=== PATIENT | female | born 1965 | race Caucasian/White ===

== ENCOUNTER 2016-08-29 16:08 | Emergency (ER) | payer MEDICAID ==
[~2016-08-29] VITALS: Ht 165.1 cm; Wt 99.8 kg
[2016-08-29 17:23] LABS: Basophils # (auto) 0 uL; Basophils % (auto) 0.4 % (0.0-2.0); Eosinophils # (auto) 0.1 uL; Eosinophils % (auto) 2.2 % (0.0-7.0); Hematocrit 48.2 % (36.0-46.0); Hemoglobin 15.4 g/dL (12.2-16.2); Lymphocytes # (auto) 0.5 uL; Lymphocytes % (auto) 15.2 % (10.0-50.0); Mean Corpuscular Hemoglobin 28.9 pg (28.0-32.0); Mean Corpuscular Volume 90.1 fL (80.0-100.0); Mean Platelet Volume 7.4 fL (7.4-10.4); Monocytes # (auto) 0.5 uL; Monocytes % (auto) 13.3 % (0.0-12.0); Neutrophils # (auto) 2.4 uL; Neutrophils % (auto) 68.9 % (37.0-80.0); Platelet Count (auto) 236 10^3/uL (140-450); Red Cell Distribution Width 13.2 % (11.6-16.0); White Blood Cell 3.5 10^3/uL (4.4-10.8)
[2016-08-29 17:36] LABS: Albumin 3.9 g/dL (3.4-5.0); BUN/Creatinine Ratio 12.9; Calcium 8.7 mg/dL (8.5-10.1); Potassium 3.5 mmol/L (3.5-5.1)
[2016-08-29 17:39] LABS: Bilirubin, Total 0.4 mg/dL (0.2-1.0)
[2016-08-29] MEDS ORDERED: SODIUM CHLORIDE 0.9% 250 ML IV ONE (22:01)
[2016-08-29] MEDS ORDERED: SODIUM CHLORIDE 0.9% 1,000 ML IV ONE (22:01)
[2016-08-29] MEDS ORDERED: LEVOFLOXACIN 500 MG TAB PO ONE (23:30)
[2016-08-30 00:59] VITALS: BP 158/106
== END 2016-08-30 01:12 | disposition home or self-care (01) ==
LOC: ER 16:23
DX: J40 Bronchitis, not specified as acute or chronic (principal); E86.0 Dehydration; J45.909 Unspecified asthma, uncomplicated; I10 Essential (primary) hypertension; B19.20 Unspecified viral hepatitis C without hepatic coma; F17.210 Nicotine dependence, cigarettes, uncomplicated; F12.10 Cannabis abuse, uncomplicated; Z86.718 Personal history of other venous thrombosis and embolism
CPT/HCPCS: 36415; 71020; 80053; 85025; 93005; 93970; 96360; 96361

== ENCOUNTER 2016-10-03 16:59 | Observation (INO) | payer MEDICAID ==
[~2016-10-03] VITALS: Ht 165.1 cm; Wt 99.8 kg
[2016-10-03] MEDS ORDERED: ONDANSETRON HCL 4 MG/2 ML VIAL IV ONE (23:00)
[2016-10-03 23:20] LABS: Basophils # (auto) 0.1 uL; Basophils % (auto) 0.9 % (0.0-2.0); Eosinophils # (auto) 0.2 uL; Eosinophils % (auto) 2.5 % (0.0-7.0); Hematocrit 45.6 % (36.0-46.0); Hemoglobin 15.2 g/dL (12.2-16.2); Lymphocytes # (auto) 2.2 uL; Lymphocytes % (auto) 31.6 % (10.0-50.0); Mean Corpuscular Hemoglobin 29.9 pg (28.0-32.0); Mean Corpuscular Hgb Conc. 33.4 g/dL (32.0-36.0); Mean Corpuscular Volume 89.4 fL (80.0-100.0); Mean Platelet Volume 7.7 fL (7.4-10.4); Monocytes # (auto) 0.4 uL; Monocytes % (auto) 5.7 % (0.0-12.0); Neutrophils # (auto) 4.1 uL; Neutrophils % (auto) 59.3 % (37.0-80.0); Platelet Count (auto) 273 10^3/uL (140-450); Red Cell Distribution Width 13.7 % (11.6-16.0); White Blood Cell 6.9 10^3/uL (4.4-10.8)
[2016-10-03 23:37] LABS: INR 1.07 (0.9-1.15); Partial Thromboplastin Time 29.5 sec (22.64-33.71)
[2016-10-03 23:43] LABS: Albumin 3.6 g/dL (3.4-5.0); BUN/Creatinine Ratio 18.9; Calcium 8.6 mg/dL (8.5-10.1); Potassium 3.6 mmol/L (3.5-5.1)
[2016-10-03 23:46] LABS: Bilirubin, Total 0.4 mg/dL (0.2-1.0); Total Protein 7.7 g/dL (6.4-8.2)
[2016-10-04] MEDS ORDERED: HYDROmorphone HCL 2 MG/ML VL IV ONE
[2016-10-04 03:27] VITALS: BP 105/73
== END 2016-10-04 04:14 | disposition short-term general hospital (02) | DRG 347 ==
LOC: ER 17:06 → OVERFLOW 17:07 → UNDOADMOB 17:07 → OVERFLOW 22:22 → ER 10-04 04:14 → UNDODISOB 10-04 04:14
PROVIDERS: ADMIT Emergency Medicine; ATTEND Emergency Medicine
DX: S32.038A Other fracture of third lumbar vertebra, initial encounter for closed fracture (principal); I10 Essential (primary) hypertension; F17.210 Nicotine dependence, cigarettes, uncomplicated; J45.909 Unspecified asthma, uncomplicated; M46.86 Other specified inflammatory spondylopathies, lumbar region; Z86.19 Personal history of other infectious and parasitic diseases; Z98.890 Other specified postprocedural states; V29.9XXA Motorcycle rider (driver) (passenger) injured in unspecified traffic accident, initial encounter; Y93.89 Activity, other specified; Y92.89 Other specified places as the place of occurrence of the external cause; Y99.8 Other external cause status
CPT/HCPCS: 36415; 72100; 72170; 73562; 73700; 74176; 80053; 85025; 85610; 85730; 96374; 96375; G0378; J2405

== ENCOUNTER 2024-08-27 15:38 | Emergency (ER) | payer MEDICAID ==
[~2024-08-27] VITALS: Ht 165.1 cm; Wt 105.0 kg
--- NOTE | 2024-08-27 16:25 | ED.PDOC ---
Musculoskeletal HPI Comments 59 year old female presents to the ED with chief complaint of left hip pain. Patient reports that she has been experiencing left sided hip pain after tripping over her dog for the past 4 days. Patient relays that she is able to walk on her left leg, but has pain in her left hip. Patient states she has been taking Jackson she has had at home, but still experienced pain. Patient denies any numbness, weakness, dizziness, chest pain, head injury, or back injury. Chief Complaint: Fall Injury Time Seen by MD: 16:19 Primary Care Provider: AMIRA Billingsley Notes: Nurses Notes, Medications, Allergies Allergies: Coded Allergies: Cephalexin (Verified Allergy, Unknown, 06/16/16) Home Meds Unable to Obtain Active Prescriptions or Reported Meds Information Source: Patient Mode of Arrival: Ambulatory Location: Left Extremity Location: Hip Timing: Hours Prehospital treatment: None Severity: Moderate Able to Move Extremity: Yes Bear Weight: Limited Pain: Moderate Mechanism: Spontaneous Circumstances: Fall, Tripped Onset of Symptoms: After Trauma Symptoms: Pain DVT Risk Factors: NONE Past Medical History PAST MEDICAL HISTORY: Asthma, HTN, Liver Surgical History: Tonsillectomy GENERAL PRACTICE History: No Pertinent GENERAL PRACTICE History Family History Family History: Unobtainable Social History Smoker: Cigarettes, Greater Than 1 Pack/Day Alcohol: Heavy Drugs: Marijuana Lives In: Home Constitutional: denies: chills, diaphoresis, fatigue, fever, malaise, sweats, weakness, others EENTM: denies: blurred vision, double vision, ear bleeding, ear discharge, ear drainage, ear pain, ear ringing, eye pain, eye redness, hearing loss, mouth pain, mouth swelling, nasal discharge, nose bleeding, nose congestion, nose pain, photophobia, tearing, throat pain, throat swelling, voice changes, others Respiratory: denies: cough, hemoptysis, orthopnea, SOB at rest, shortness of breath, SOB with excertion, stridor, wheezing, others Cardiovascular: denies: chest pain, dizzy spells, diaphoresis, Dyspnea on exertion, edema, irregular heart beat, left arm pain, lightheadedness, palpitations, PND, syncope, others Gastrointestinal: denies: abdomen distended, abdominal pain, blood streaked bowels, constipated, diarrhea, dysphagia, difficulty swallowing, hematemesis, melena, nausea, poor appetite, poor fluid intake, rectal bleeding, rectal pain, vomiting, others Genitourinary: denies: abnormal vagina bleeding, burning, dyspareunia, dysuria, flank pain, frequency, hematuria, incontinence, pain, , vagina discharge, urgency, others Neurological: denies: dizziness, fainting, headache, left sided numbness, left sided weakness, numbness, paresthesia, pre-existing deficit, right sided numbness, right sided weakness, seizure, speech problems, tingling, tremors, weakness, others Musculoskeletal: reports: others (Left hip pain); denies: back pain, gout, joint pain, joint swelling, muscle pain, muscle stiffness, neck pain Integumetry: denies: bruises, change in color, change in hair/nails, dryness, laceration, lesions, lumps, rash, wounds, others Allergic/Immunocompromised: denies: Difficulty Healing, Frequent Infections, Hives, Itching, others Hematologic/Lymphatic: denies: anemia, blood clots, easy bleeding, easy bruising, swollen glands, others Endocrine: denies: excessive hunger, excessive sweating, excessive thirst, excessive urination, flushing, intolerance to cold, intolerance to heat, unexplained weight gain, unexplained weight loss, others Psychiatric: denies: anxiety, bipolar disorder, depression, hopeless, panic disorder, schizophrenia, sleepless, suicidal, others All Other Systems: Reviewed and Negative Physical Exam General Appearance: No Apparent Distress, Normal HEENT: Normal ENT Inspection, PERRL/EOMI Neck: Full Range of Motion, Non-Tender, Normal, Normal Inspection Respiratory: Chest Non-Tender, Lungs Clear, No Accessory Muscle Use, No Respiratory Distress, Normal Breath Sounds Cardiovascular: No Edema, No JVD, No Murmur, No Gallop, Normal Peripheral Pulses, Regular Rate/Rhythm Breast Exam: Deferred Gastrointestinal: No Organomegaly, Non Tender, No Pulsatile Mass, Normal Bowel Sounds, Soft Genitalia: Deferred Pelvic: Deferred Rectal: Deferred Extremities: No calf tenderness, Normal capillary refill, Normal inspection, Normal range of motion, Non-tender, No pedal edema Musculoskeletal : Location: Left Extremity Location: Hip Apperance: Normal, Tenderness (Tenderness over left hip with no leg shortening or crepitus) Neurologic: Alert, 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 Was a procedure done?: No Differential Diagnosis EXT Differential Diagnosis: Cellulitis, Deep Vein Thrombosis, Fracture, Sprain, Dislocation, Neurovascular injury X-Ray, Labs, Meds, VS Vital Signs Date Time Temp Pulse Resp B/P (MAP) Pulse Ox O2 Delivery O2 Flow Rate FiO2 08/27/24 19:22 Room Air* 0 21 08/27/24 17:15 98.1 50 15 164/101 (122) 98 98.1 08/27/24 17:15 50 15 98 Room Air* 0 21 08/27/24 16:14 97.3 65 18 145/97 (113) 97 Current Medications Medications (Trade) Dose Ordered Sig/Yari Route Start Time Stop Time Status Last Admin Acetaminophen/ Hydrocodone Bitart (Jackson 10/325MG Tab) 1 tab ONCE ONCE PO 08/27/24 18:30 08/27/24 18:31 DC 08/27/24 18:29 X-Ray, Labs, Meds, VS Comment Spoke with Dr. Lilly management development specialist he states fracture is on operable, he concurs with discharged home with walker. Patient was Jackson 10s at home for pain control. Time of 1ST Reevaluation: 17:19 Reevaluation 1ST: Unchanged Patient Education/Counseling: Diagnosis, Treatment, Need For Follow Up (Follow up with management development specialist in next 3-5 days.) Family Education/Counseling: No Family Present Departure 1 Departure Time of Disposition: 20:07 Impression: Primary Impression: Closed left hip fracture Qualified Codes: S72.002A - Fracture of unspecified part of neck of left femur, initial encounter for closed fracture Additional Impression: Greater trochanter fracture Qualified Codes: S72.115A - Nondisplaced fracture of greater trochanter of left femur, initial encounter for closed fracture Disposition: 01 HOME / SELF CARE / HOMELESS Condition: Fair e-Prescriptions Unable to Obtain Active Prescriptions or Reported Meds Discharged With: Self Comments Patient given number for Dr. Lilly's office, advised to call tomorrow for a follow up appointment. Critical Care Note Critical Care Time?: No Stability Stability form required: No Heart Score Heart Score: Heart Score Response (Comments) Value History N/A 0 EKG N/A 0 Age N/A 0 Risk Factors N/A 0 Troponin N/A 0 Total 0 I personally scribed for AMALIA NOLAN ([email or web address]) on 08/27/24 at 16:25. Electronically submitted by Ramiro Kendall ([email or web address]). AMALIA NOLAN Aug 27, 2024 16:25
--- NOTE | 2024-08-27 16:31 | DVH ---
CLINICAL INDICATION: fall TECHNIQUE: AP views of the pelvis and AP and frogleg lateral views of the left hip were performed. X Y L HIP COMPLETE XRAY Comparison: None FINDINGS/IMPRESSION: : 1. Distracted fracture of the left greater trochanter. 2. No other fractures are identified about the pelvis or right hip. 3. Moderate to severe hip osteoarthritis with joint space narrowing and prominent marginal osteophyte s. No significant left hip joint space narrowing.
[2024-08-27 17:15] VITALS: PULSE 50; RESP 15; O2SAT 98
[2024-08-27] MEDS: HYDROcodone-ACET 10/325MG TAB PO ONE (18:29)
--- NOTE | 2024-08-27 18:56 | DVH ---
INDICATION: fall COMPARISON: None TECHNIQUE: CT of the right was performed without contrast. Volume transverse images were obtained a nd reconstructed in multiple planes using bone and soft tissue algorithms. CONTRAST: None Radiation Dose Information: CT Dose: CTDI volume is 31.88 mGy. Dose-length product is 954.38 mGy*cm FINDINGS: The alignment is normal. The joint spaces are normal. Fracture through the greater trochanter of the proximal left femur. The intertrochanteric portion of the proximal left femur appears intact and no femoral neck fractures are visible. The soft tissues are normal. IMPRESSION: Fracture of the greater trochanter. No intertrochanteric fractures no femoral neck fractures. The les ser trochanter appears intact. HS:Y
[2024-08-27 20:00] VITALS: BP 122/53; PULSE 53; RESP 17; TEMP 98.2; O2SAT 96
== END 2024-08-27 21:30 | disposition home or self-care (01) ==
LOC: ER 15:38
DX: S72.092A Other fracture of head and neck of left femur, initial encounter for closed fracture (principal); J45.909 Unspecified asthma, uncomplicated; I10 Essential (primary) hypertension; F17.210 Nicotine dependence, cigarettes, uncomplicated; F12.90 Cannabis use, unspecified, uncomplicated; F10.10 Alcohol abuse, uncomplicated; Z98.890 Other specified postprocedural states; Z88.6 Allergy status to analgesic agent; W01.0XXA Fall on same level from slipping, tripping and stumbling without subsequent striking against object, initial encounter; Y93.89 Activity, other specified; Y92.89 Other specified places as the place of occurrence of the external cause; Y99.8 Other external cause status
CPT/HCPCS: 73502; 73700